=== PATIENT | female | born 1970 | race Caucasian/White ===

== ENCOUNTER 2018-12-07 10:52 | Emergency (ER) | payer BC ==
[2018-12-07 11:11] VITALS: BP 155/66
[2018-12-07] MEDS ORDERED: Ondansetron 4 MG/2 ML SDV IVPUSH ONE (11:13)
[2018-12-07] MEDS ORDERED: Morphine 2 MG/ML Syringe IVPUSH ONE (11:13)
[2018-12-07] MEDS ORDERED: Sodium Chloride 0.9% 10 ML Syringe FLUSH PRN (11:13)
--- NOTE | 2018-12-07 11:13 | EDM.PDOC ---
ED HPI GENERAL MEDICAL PROBLEM - General Chief Complaint: Abdominal Pain Stated Complaint: ABDOMINAL PAIN Time Seen by Provider: 12/07/18 11:04 Source of Information: Reports: Patient History Limitations: Reports: No Limitations - History of Present Illness INITIAL COMMENTS - FREE TEXT/NARRATIVE: Patient complains of sharp lower abdominal pain. She states this started around 9 am. No vaginal discharge or bleeding. Has had her gall bladder removed but still has her appendix. She denies any recent illness, no nausea, no vomiting. She denies chest pain, SOB, headache, numbness, tingling, or weakness to her extremities. She denies having had this happen before. Not worse with eating as she has not felt like doing so. Onset: Today, Sudden Duration: Intermittent Location: Reports: Abdomen Quality: Reports: Sharp, Stabbing Severity: Moderate Associated Symptoms: Reports: No Other Symptoms - Related Data Allergies Allergy/AdvReac Type Severity Reaction Status Date / Time Penicillins Allergy Hives Verified 12/07/18 11:13 Sulfa (Sulfonamide Allergy Hives Verified 12/07/18 11:13 Antibiotics) Home Meds: Home Meds ALPRAZolam [Xanax] 1 mg PO DAILY 12/07/18 [History] ARIPiprazole [Abilify] 2.5 mg PO DAILY 12/07/18 [History] Methylphenidate HCl [Methylphenidate ER] 36 mg PO DAILY 12/07/18 [History] Topiramate [Topamax] 25 mg PO BID 12/07/18 [History] Venlafaxine [Effexor XR] 300 mg PO DAILY 12/07/18 [History] Zolpidem Tartrate [Ambien] 5 mg PO BEDTIME 12/07/18 [History] traMADol [Ultram] 50 mg PO Q6H PRN 12/07/18 [History] Past Medical History Neurological History: Reports: Migraines Psychiatric History: Reports: Anxiety, Depression - Past Surgical History Musculoskeletal Surgical History: Reports: Shoulder Surgery ED ROS GENERAL - Review of Systems Review Of Systems: See Below Constitutional: Reports: No Symptoms HEENT: Reports: No Symptoms Respiratory: Reports: No Symptoms Cardiovascular: Reports: No Symptoms Endocrine: Reports: No Symptoms GI/Abdominal: Reports: Abdominal Pain : Reports: No Symptoms Musculoskeletal: Reports: No Symptoms Skin: Reports: No Symptoms Neurological: Reports: No Symptoms Psychiatric: Reports: No Symptoms Hematologic/Lymphatic: Reports: No Symptoms Immunologic: Reports: No Symptoms ED EXAM, GI/ABD - Physical Exam Exam: See Below Exam Limited By: No Limitations General Appearance: Alert, WD/WN, No Apparent Distress Eyes: Bilateral: Normal Appearance, EOMI Ears: Normal TMs Nose: Normal Inspection, Normal Mucosa, No Blood Throat/Mouth: Normal Inspection, Normal Lips, Normal Teeth, Normal Gums, Normal Oropharynx, Normal Voice, No Airway Compromise Head: Atraumatic, Normocephalic Neck: Normal Inspection, Supple, Non-Tender, Full Range of Motion Respiratory/Chest: No Respiratory Distress, Lungs Clear, Normal Breath Sounds, No Accessory Muscle Use, Chest Non-Tender Cardiovascular: Normal Peripheral Pulses, Regular Rate, Rhythm, No Edema, No Gallop, No JVD, No Murmur, No Rub GI/Abdominal Exam: Normal Bowel Sounds, No Organomegaly, No Distention, No Mass , Tender Back Exam: Normal Inspection, Full Range of Motion, NT Extremities: Normal Inspection, Normal Range of Motion, Non-Tender, Normal Capillary Refill, No Pedal Edema Neurological: Alert, Oriented, CN II-XII Intact, Normal Cognition, Normal Gait, Normal Reflexes, No Motor/Sensory Deficits Psychiatric: Normal Affect, Normal Mood Skin Exam: Warm, Dry, Intact, Normal Color, No Rash Lymphatic: No Adenopathy Course - Radiology Interpretation Free Text/Narrative:: CT shows abnormal appearance of endocervical canal and endometrium - 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 Follow up with your DIAGRAM CLERK for further investigation of the abnormal cervical and endometrial tissue 2. Take 0.5-1 tablet of hydrocodone every 4 hours 3. Stay well hydrated 4. If you have any further questions or concerns, please call the emergency room at any time - Problem List & Annotations (1) Cervical hyperplasia SNOMED Code(s): 882678566 Code(s): N87.9 - DYSPLASIA OF CERVIX UTERI, UNSPECIFIED Status: Acute Priority: Medium Current Visit: Yes - Problem List Review Problem List Initiated/Reviewed/Updated: Yes - Assessment/Plan Assessment:: cervical and endometrial tissue hyperplasia Plan: Plan 1. Follow up with your DIAGRAM CLERK for further investigation of the abnormal cervical and endometrial tissue 2. Take 0.5-1 tablet of hydrocodone every 4 hours 3. Stay well hydrated 4. If you have any further questions or concerns, please call the emergency room at any time
[2018-12-07] MEDS ORDERED: Sodium Chloride 0.9% 1,000 ML IV SCH (11:15)
[2018-12-07 11:52] LABS: CHLORIDE,CL 105 mmol/L (98-107); SODIUM,NA 142 mmol/L (136-145)
[2018-12-07 11:53] LABS: ANION GAP 16.1 mmol/L (10-20)
[2018-12-07] MEDS ORDERED: Iopamidol 612 MG/ML 100 ML Bottle IVPUSH ONE (12:11)
[2018-12-07] MEDS ORDERED: Morphine 4 MG/ML Syringe IVPUSH ONE (12:32)
--- NOTE | 2018-12-07 13:46 | CT ---
[id number] CT/CT Abdomen Pelvis W IV EXAM: CT Abdomen Pelvis W IV CLINICAL DATA: ABDOMINAL PAIN COMPARISON: CORRELATION IS MADE WITH THE EXAM OF SEPTEMBER 25, 2016. FINDINGS: The gallbladder has been removed. The appendix is normal. The endometrium is prominent. There may be a Bartholin's cyst. This is best seen on image 69, series 4. This is compared with image 50, series 6 on the last CAT scan. Correlation with clinical exam and evaluation of the cervix may be helpful. The liver and spleen are unremarkable. The kidneys and adrenals show no abnormality. The aorta and pancreas are within normal limits. There is no bowel distention. There is no bowel wall thickening either. There is no free fluid or free air. There is no adenopathy. The pelvis shows no mass, free fluid, abscess, inflammatory change, or adenopathy. IMPRESSION: ABNORMAL APPEARANCE OF ENDOCERVICAL CANAL AND ENDOMETRIUM. CORRELATION WITH TEST AND PHYSICAL EXAM SUGGESTED. NO OTHER ABNORMALITY OTHERWISE. Min Carver MD 12/07/18 2811 Thank you for allowing us to participate in the care of your patient.
[2018-12-07] MEDS ORDERED: Take Home: Acetaminophen/HYDROcodone 325-10 MG, 5 Tab Pack PO ONE (13:57)
== END 2018-12-07 14:26 | disposition home or self-care (01) ==
LOC: VM.ED 10:52
DX: N87.9 Dysplasia of cervix uteri, unspecified (principal); F41.9 Anxiety disorder, unspecified; F32.9 Major depressive disorder, single episode, unspecified; Z88.0 Allergy status to penicillin; Z88.2 Allergy status to sulfonamides; Z79.899 Other long term (current) drug therapy
CPT/HCPCS: 74177; 80053; 81001; 81025; 82150; 85025; 96361; 96374; 96375; 96376; 99284; A9270; J2270; J2405; J7030; Q9967

== ENCOUNTER 2019-12-02 13:24 | Emergency (ER) | payer BC ==
[2019-12-02 13:36] VITALS: BP 149/66; PULSE 72
--- NOTE | 2019-12-02 14:00 | EDM.PDOC ---
ED HPI GENERAL MEDICAL PROBLEM - General Chief Complaint: Back Pain or Injury Stated Complaint: LOW BACK PAIN Time Seen by Provider: 12/02/19 13:40 Source of Information: Reports: Patient History Limitations: Reports: No Limitations - History of Present Illness INITIAL COMMENTS - FREE TEXT/NARRATIVE: Patient comes into the emergency department with complaints of lower back pain radiating to bilateral knees. Patient describes the sensation as a burning, pinching, and sharp sensation. 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 She states since then she has had difficulty due to the pain and discomfort. Today she did go to the chiropractor as well as take Tylenol and Flexeril approximately 1 to 1-1/2 hours prior to arrival to the emergency department. Upon arrival to the emergency department the patient states that she is feeling better. Patient has not used any massage therapy, ice or heat therapy. Patient denies any recent injuries or illnesses related to her lower back. Patient says she has noted some frequency with urination but denies hesitancy or burning sensation. She also denies any fever. 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, Other (see below) (chiropractor today, and flexeril at 1100 ) Lower Back Pain Score (Numeric/FACES): 8 - Related Data Allergies Allergy/AdvReac Type Severity Reaction Status Date / Time Penicillins Allergy Hives Verified 12/02/19 13:38 Sulfa (Sulfonamide Allergy Hives Verified 12/02/19 13:38 Antibiotics) Home Meds: Home Meds ALPRAZolam [Xanax] 1 mg PO DAILY 12/07/18 [History] ARIPiprazole [Abilify] 2.5 mg PO DAILY 12/07/18 [History] Methylphenidate HCl [Methylphenidate ER] 36 mg PO DAILY 12/07/18 [History] Topiramate [Topamax] 25 mg PO BID 12/07/18 [History] Venlafaxine [Effexor XR] 300 mg PO DAILY 12/07/18 [History] Zolpidem Tartrate [Ambien] 5 mg PO BEDTIME 12/07/18 [History] traMADol [Ultram] 50 mg PO Q6H PRN 12/07/18 [History] Past Medical History 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 Constitutional: Reports: No Symptoms, Weight Gain Respiratory: Reports: No Symptoms Cardiovascular: Reports: No Symptoms Endocrine: Reports: No Symptoms GI/Abdominal: Reports: No Symptoms : Reports: No Symptoms Skin: Reports: No Symptoms Neurological: Reports: No Symptoms ED EXAM, GENERAL - Physical Exam Exam: See Below Exam Limited By: No Limitations General Appearance: Alert, WD/WN, No Apparent Distress Head: Atraumatic, Normocephalic Neck: Normal Inspection, Supple, Non-Tender, Full Range of Motion Respiratory/Chest: No Respiratory Distress, No Accessory Muscle Use, Chest Non- Tender Cardiovascular: Normal Peripheral Pulses, Regular Rate, Rhythm, No Edema GI/Abdominal: Soft, Non-Tender, No Distention Back Exam: Normal Inspection, Full Range of Motion, Muscle Spasm (pain shoots bilaterally down posterior back to knees) Extremities: Normal Inspection, Normal Range of Motion, Non-Tender, No Pedal Edema, Normal Capillary Refill Neurological: Alert, Oriented, Normal Cognition, Normal Gait Psychiatric: Normal Affect, Normal Mood Skin Exam: Warm, Dry, Intact Course - Vital Signs Last Recorded V/S: Last Vital Signs Temp 35.9 C L 12/02/19 13:30 Pulse 72 12/02/19 13:30 Resp 18 12/02/19 13:30 BP 149/66 H 12/02/19 13:30 Pulse Ox 96 12/02/19 13:30 - Orders/Labs/Meds Orders: Active Orders 24 hr Category Date Time Status UA RFX REA AND CULT IF INDIC [URIN] Stat Lab 12/02/19 13:51 Ordered Departure - Departure Time of Disposition: 14:05 Disposition: Home, Self-Care 01 Condition: Good Clinical Impression: Sciatica Qualifiers: Laterality: bilateral Qualified Code(s): M54.31 - Sciatica, right side; M54.32 - Sciatica, left side - Discharge Information *PRESCRIPTION DRUG MONITORING PROGRAM REVIEWED*: Not Applicable *COPY OF PRESCRIPTION DRUG MONITORING REPORT IN PATIENT GRICEL: Not Applicable Instructions: Muscle Strain, [id number], Sciatica, Back Exercises, Back Injury Prevention, [id number] Referrals: Andrew Jimenez MD [Primary Care Provider] - Additional Instructions: 1. Rest 2. Can take the flexeril as it was prescribed as directed by your PCP 3. Can use tylenol and ibuprophen as needed for pain and discomfort 4. Diet as tolerated 5. Activity as tolerated 6. Elevated the injured area above the level of the heart to decrease swelling and discomfort. 7. Use ice 3-4 times a day at 20-minute intervals to help with any swelling and discomfort 8. Follow-up with your primary care provider symptoms continue or to progress 9. Follow with any questions or concerns 10. Discharge information has been provided regarding your injury 11. Please go to the 5th floor to set up an appointment for physical therapy The medication you have been (Flexeril) by you PCP has a warning it may inhibit your response or action time. It is advised you do not drive or operate any device while using this medications. It is also advised this medication can not be shared or given to other individuals for it is against the law and one may be punished in the court of law. Sepsis Event Note - Evaluation Sepsis Screening Result: No Definite Risk - Focused Exam Vital Signs: Vital Signs Temp Pulse Resp BP Pulse Ox 12/02/19 13:30 35.9 C L 72 18 149/66 H 96 Date Exam was Performed: 12/02/19 Time Exam was Performed: 13:54 - My Orders Last 24 Hours: My Active Orders 12/02/19 13:51 UA RFX REA AND CULT IF INDIC [URIN] Stat - Assessment/Plan Last 24 Hours: My Active Orders 12/02/19 13:51 UA RFX REA AND CULT IF INDIC [URIN] Stat Assessment:: 1. Back pain 2. Sciatica Plan: 1. UA completed in ER 2. Patient took Tylenol and Flexeril just prior to arrival and is feeling much better. no further pain medications were warranted at this time. 3. Physical therapy referral for bilateral sciatica completed. Patient will go and schedule after visit today 4. Patient and nursing staff was updated regarding the plan of care 5. Education provided the patient regarding activity, diet, rest, over-the- counter medication modalities, and follow-up care was provided 6. Patient and family are agreeable to the above plan of care 7. All questions and concerns were addressed with the patient and family prior to discharge
== END 2019-12-02 14:15 | disposition home or self-care (01) ==
LOC: VM.ED 13:24
DX: M54.42 Lumbago with sciatica, left side (principal); M54.41 Lumbago with sciatica, right side; G43.909 Migraine, unspecified, not intractable, without status migrainosus; F41.9 Anxiety disorder, unspecified; F32.9 Major depressive disorder, single episode, unspecified; Z88.0 Allergy status to penicillin; Z88.2 Allergy status to sulfonamides; Z79.899 Other long term (current) drug therapy
CPT/HCPCS: 81003; 99283

== ENCOUNTER 2020-09-09 06:47 | Day surgery (SDC) | payer BC ==
[2020-09-09] MEDS: Lactated Ringers 1,000 ML IV SCH (07:02)
[2020-09-09] MEDS ORDERED: fentaNYL 100 MCG/2 ML SDV ONE (08:14)
[2020-09-09] MEDS ORDERED: Propofol 200 MG/20 ML SDV ONE ×2 (08:14→08:28)
[2020-09-09 09:20] VITALS: BP 117/71; PULSE 73
--- NOTE | 2020-09-09 12:30 | OR ---
DATE OF SURGERY: 09/09/2020. REFERRING PROVIDER: Andrew Jimenez MD PRE-OPERATIVE DIAGNOSIS: Screening colonoscopy. This is the patient's second colon. The first 1 was about 10 years ago. There is a positive family history of colon cancer in maternal grandfather who was in his 70s. POST-OPERATIVE DIAGNOSIS: Normal colon. PROCEDURE: Colonoscopy. SURGEON: Vitor Degroot M.D. ANESTHESIA: Monitored anesthesia care. BOWEL PREP: Fair to good. Tori is a 50-year-old female who was brought to the endoscopy suite after discussing risks and benefits of the procedure. Informed consent was obtained for conscious sedation and colonoscopy with or without biopsy and/or polypectomy. We also discussed possibility of missed lesions. Pre-procedure exam was unremarkable. IV, oxygen, and monitors were placed. The patient was placed in the left lateral decubitus position. Sedation was administered and a digital rectal exam was performed and unremarkable. Colonoscope was passed into the rectum and slowly advanced all the way to the cecum. Cecum was viewed and photographed. The colonoscope was slowly withdrawn and the mucosa was closed observed in a direct circumferential manner. The ascending colon was unremarkable. The transverse colon was unremarkable. The descending colon was unremarkable. The sigmoid colon was unremarkable. Retroflexion was performed and rectal mucosa was unremarkable. Scope was removed. The patient tolerated the procedure well. The patient was monitored until that baseline status. Discharge instructions were reviewed and the patient was discharged in good condition. COMPLICATIONS: None. TOTAL TIME: 27 minutes. ESTIMATED BLOOD LOSS: None. RECOMMENDATIONS/FOLLOW-UP: Recommend repeat colonoscopy again in 10 years barring any interval change in personal symptoms or family history. I would like to kindly thank Andrew Jimenez for this referral. DMB: 09/09/2020 10:19:42 MODL: 09/09/2020 10:37:06 /[id number]
== END 2020-09-09 09:55 | disposition home or self-care (01) ==
LOC: VM.SDS 06:47
PROVIDERS: ATTEND Family Medicine
DX: Z12.11 Encounter for screening for malignant neoplasm of colon (principal); G47.33 Obstructive sleep apnea (adult) (pediatric); E11.9 Type 2 diabetes mellitus without complications; F41.9 Anxiety disorder, unspecified; F31.9 Bipolar disorder, unspecified; E66.9 Obesity, unspecified; Z01.812 Encounter for preprocedural laboratory examination; Z20.828 Contact with and (suspected) exposure to other viral communicable diseases; Z90.49 Acquired absence of other specified parts of digestive tract; Z98.890 Other specified postprocedural states; Z80.0 Family history of malignant neoplasm of digestive organs; Z79.899 Other long term (current) drug therapy; Z79.84 Long term (current) use of oral hypoglycemic drugs; Z88.0 Allergy status to penicillin; Z88.2 Allergy status to sulfonamides; Z68.42 Body mass index [BMI] 45.0-49.9, adult
CPT/HCPCS: 00812; 82962; J2704; J3010; J7120; U0002

== ENCOUNTER 2022-05-22 22:27 | Emergency (ER) | payer BC ==
[2022-05-22] MEDS: Aspirin 81 MG Tab.Chew PO ONE (22:35)
[2022-05-22] MEDS ORDERED: Sodium Chloride 0.9% 10 ML Syringe FLUSH PRN (22:38)
[2022-05-22] MEDS: hydrOXYzine HCl 25 MG Tab PO ONE (22:50)
[2022-05-22 23:21] LABS: ANION GAP 13.9 mmol/L (5-15)
[2022-05-22 23:34] VITALS: BP 131/72; PULSE 81
== END 2022-05-22 23:51 | disposition home or self-care (01) ==
LOC: VM.ED 22:27
DX: I20.8 Other forms of angina pectoris (principal); F41.9 Anxiety disorder, unspecified; E11.9 Type 2 diabetes mellitus without complications; E66.9 Obesity, unspecified; Z68.42 Body mass index [BMI] 45.0-49.9, adult; Z88.0 Allergy status to penicillin; Z88.2 Allergy status to sulfonamides; Z79.82 Long term (current) use of aspirin; Z79.899 Other long term (current) drug therapy
CPT/HCPCS: 71045; 80053; 83880; 84484; 85025; 93005; 93010; 99285; A9270-GY